=== PATIENT | female | born 1980 | race Caucasian/White ===

== ENCOUNTER 2018-11-11 09:10 | Emergency (ER) | payer OTHER ==
[~2018-11-11] VITALS: Ht 172.7 cm; Wt 71.4 kg
[2018-11-11 09:10] VITALS: BP 107/77
--- NOTE | 2018-11-11 09:49 | PHYS DOC ---
Adult General Chief Complaint Chief Complaint: SORE THROAT HPI HPI 38-year-old female presents with one-day history of sore throat. She has not had a measured fever, but feels like she had some general body aches last night and this morning. She does want to make sure was not strep because she has a daughter. She denies cough or congestion. No diarrhea. Review of Systems Review of Systems Constitutional: Denies fever or chills [] Eyes: Denies change in visual acuity, redness, or eye pain [] HENT: sore throat [] Respiratory: Denies cough or shortness of breath [] Cardiovascular: No additional information not addressed in HPI [] GI: Denies abdominal pain, nausea, vomiting, bloody stools or diarrhea [] : Denies dysuria or hematuria [] Musculoskeletal: Denies back pain or joint pain [] Integument: Denies rash or skin lesions [] Neurologic: Denies headache, focal weakness or sensory changes [] Endocrine: Denies polyuria or polydipsia [] All other systems were reviewed and found to be within normal limits, except as documented in this note. Allergies Allergies Allergies Coded Allergies Type Severity Reaction Last Updated Verified No Known Drug Allergies 11/11/18 No Physical Exam Physical Exam Constitutional: Well developed, well nourished, no acute distress, non-toxic appearance. [] HENT: Normocephalic, atraumatic, bilateral external ears normal, oropharynx moist, no oral exudates, nose normal. Left tonsil mildly enlarged, minimal erythema. [] Eyes: PERRLA, EOMI, conjunctiva normal, no discharge. [] Neck: Normal range of motion, no tenderness, supple, no stridor. Mild anterior lymphadenopathy on the left[] Cardiovascular:Heart rate regular rhythm, no murmur [] Lungs & Thorax: Bilateral breath sounds clear to auscultation [] Abdomen: Bowel sounds normal, soft, no tenderness, no masses, no pulsatile masses. [] Skin: Warm, dry, no erythema, no rash. [] Back: No tenderness, no CVA tenderness. [] Extremities: No tenderness, no cyanosis, no clubbing, ROM intact, no edema. [] Neurologic: Alert and oriented X 3, normal motor function, normal sensory function, no focal deficits noted. [] Psychologic: Affect normal, judgement normal, mood normal. [] EKG EKG [] Radiology/Procedures Radiology/Procedures [] Course & Med Decision Making Course & Med Decision Making Pertinent Labs and Imaging studies reviewed. (See chart for details) The patient's rapid strep is negative. She appears to have viral pharyngitis. I have advised supportive care. She is stable for discharge at this time. [] Dragon Disclaimer Dragon Disclaimer This electronic medical record was generated, in whole or in part, using a voice recognition dictation system. Departure Departure: Impression: Primary Impression: Pharyngitis Disposition: HOME, SELF-CARE Condition: STABLE Referrals: JOYCE HANKS (PCP) Patient Instructions: Viral Pharyngitis Problem Qualifiers Primary Impression: Pharyngitis Pharyngitis/tonsillitis etiology: other specified organisms Qualified Codes: J02.8 - Acute pharyngitis due to other specified organisms AMMY PANCHAL DO Nov 11, 2018 09:49
== END 2018-11-11 09:51 | disposition home or self-care (01) ==
LOC: ER 09:10
DX: J02.8 Acute pharyngitis due to other specified organisms (principal); R59.1 Generalized enlarged lymph nodes
CPT/HCPCS: 87070; 87880; 99283